=== PATIENT | male | born 1965 | race Hispanic/Latino ===

== ENCOUNTER 2021-06-22 20:06 | Observation (INO) | payer OTHER ==
[~2021-06-22] VITALS: Ht 177.8 cm; Wt 132.4 kg
[2021-06-22] MEDS ORDERED: ONDANSETRON HCL INJ 2MG/ML 2ML 2 MG/ML VIAL IV PRN (20:30)
[2021-06-22] MEDS ORDERED: Morphine 4mg Syringe 4 MG/ML INJ IV PRN (20:45)
[2021-06-22 21:17] LABS: BASOPHILS # (AUTO) 0.1 (0.0-0.1); BASOPHILS % 0.7 % (0.0-1.0); EOSINOPHILS # (AUTO) 0.2 (0.0-0.4); EOSINOPHILS % 2.7 % (0.0-6.0); HEMATOCRIT 32.6 % (38.2-49.6); HEMOGLOBIN 9.7 g/dL (14.0-18.0); LYMPHOCYTES # (AUTO) 1.5 (1.0-3.2); LYMPHOCYTES % 20.2 % (18.0-39.1); MEAN CORPUSCULAR HEMOGLOBIN 26.3 pg (28-32); MEAN CORPUSCULAR HGB CONC 29.8 g/dL (31-35); MEAN CORPUSCULAR VOLUME 88.3 fL (81-99); MONOCYTES # (AUTO) 0.6 (0.2-0.8); NEUTROPHILS # (AUTO) 5.1 (2.1-6.9); PLATELET COUNT 376 x10e3/uL (140-360); RED BLOOD COUNT 3.69 x10e6/uL (4.3-5.7); RED CELL DISTRIBUTION WIDTH 13.3 % (11.7-14.4)
[2021-06-22 21:31] LABS: ALBUMIN/GLOBULIN RATIO 0.9 (0.8-2.0); ANION GAP 16.3 mmol/L (8-16); CALCIUM 8.8 mg/dL (8.4-10.2); CREATININE, SERUM 1.02 mg/dL (0.72-1.25); POTASSIUM 4.3 mmol/L (3.5-5.1)
[2021-06-22 21:36] LABS: CREATINE KINASE MB 3.9 ng/mL (0-5.0)
[2021-06-23] VITALS (9 sets, daily range): BP systolic 144–185; BP diastolic 80–96
[2021-06-23] MEDS ORDERED: FAMOTIDINE20 MG PO (00:58)
[2021-06-23] MEDS ORDERED: LASIX80 MG PO (00:58)
[2021-06-23] MEDS ORDERED: LISINOPRIL10 MG PO (00:58)
[2021-06-23] MEDS ORDERED: LANTUS 3ML100 UNITS/ SQ (00:58)
[2021-06-23] MEDS ORDERED: AUGMENTIN 875-1 EACH PO (00:58)
[2021-06-23] MEDS ORDERED: INPEN (FOR HUM1 EACH SQ (00:58)
[2021-06-23] MEDS ORDERED: CARVEDILOL12.5 MG PO (00:58)
[2021-06-23] MEDS ORDERED: HUMALOG100 UNIT/3 SQ (01:04)
[2021-06-23 07:20] LABS: BASOPHILS # (AUTO) 0.1 (0.0-0.1); BASOPHILS % 0.8 % (0.0-1.0); EOSINOPHILS # (AUTO) 0.2 (0.0-0.4); EOSINOPHILS % 3.6 % (0.0-6.0); HEMATOCRIT 30.9 % (38.2-49.6); HEMOGLOBIN 9.2 g/dL (14.0-18.0); LYMPHOCYTES # (AUTO) 1.6 (1.0-3.2); LYMPHOCYTES % 24.5 % (18.0-39.1); MEAN CORPUSCULAR HEMOGLOBIN 26.1 pg (28-32); MEAN CORPUSCULAR HGB CONC 29.8 g/dL (31-35); MEAN CORPUSCULAR VOLUME 87.8 fL (81-99); MONOCYTES # (AUTO) 0.7 (0.2-0.8); MONOCYTES % 9.8 % (4.4-11.3); NEUTROPHILS # (AUTO) 4.1 (2.1-6.9); NEUTROPHILS % 60.8 % (38.7-80.0); PLATELET COUNT 344 x10e3/uL (140-360); RED BLOOD COUNT 3.52 x10e6/uL (4.3-5.7); RED CELL DISTRIBUTION WIDTH 13.3 % (11.7-14.4)
[2021-06-23 07:42] LABS: ALBUMIN 2.7 g/dL (3.5-5.0); ALBUMIN/GLOBULIN RATIO 0.8 (0.8-2.0); ANION GAP 14.2 mmol/L (8-16); CALCIUM 8.6 mg/dL (8.4-10.2); CREATININE, SERUM 0.86 mg/dL (0.72-1.25); POTASSIUM 4.2 mmol/L (3.5-5.1)
[2021-06-23 07:49] LABS: CREATINE KINASE MB 3.2 ng/mL (0-5.0)
[2021-06-23] MEDS ORDERED: ONDANSETRON HCL 4 MG ORAL DISINTEGRATING TAB PO PRN (10:30)
[2021-06-23] MEDS ORDERED: DEXTROSE 50% SYRINGE 50 ML IV PRN (12:45)
[2021-06-23] MEDS: LISINOPRIL 10 MG TAB PO SCH (15:58)
[2021-06-23] MEDS: FUROSEMIDE 40 MG TAB PO SCH (15:58)
[2021-06-23] MEDS: INSULIN LISPRO 100 UNIT/1 ML 3ML VIAL SQ SCH ×3 (16:30→21:00)
[2021-06-23] MEDS ORDERED: CARVEDILOL 12.5 MG TAB PO SCH (17:00)
[2021-06-23] MEDS ORDERED: GENTAMICIN SULFATE 40 MG/ML 2 ML VIAL ONE (17:07)
[2021-06-23] MEDS ORDERED: LIDOCAINE HCL 2% LOCAL 20 ML VIAL ONE (17:07)
[2021-06-23] MEDS ORDERED: FENTANYL CITRATE/PF 100MCG/2 ML INJ ONE (17:07)
[2021-06-23] MEDS ORDERED: MIDAZOLAM HCL 2 MG/2 ML VIAL ONE (17:07)
[2021-06-23] MEDS ORDERED: Vancomycin IV 1 GM VIAL ONE (17:08)
[2021-06-23] MEDS ORDERED: IOPAMIDOL 300MG/ML 50ML INFUS..BTL IV ONE (17:08)
[2021-06-23] MEDS ORDERED: SODIUM CHLORIDE 0.9% 500ML 500 ML ONE (17:08)
[2021-06-23] MEDS ORDERED: SODIUM CHLORIDE 0.9% 1000ML 2,000 ML ONE (17:09)
[2021-06-23] MEDS ORDERED: SODIUM CHLORIDE 0.9% 250ML 250 ML ONE (17:09)
[2021-06-23] MEDS ORDERED: INSULIN GLARGINE 100 UNITS/ML VIAL SQ SCH (21:00)
[2021-06-23] MEDS ORDERED: FAMOTIDINE 20 MG TAB PO SCH (21:00)
[2021-06-23] MEDS ORDERED: ATORVASTATIN 20 MG TAB PO SCH (21:00)
[2021-06-23] MEDS ORDERED: EZETIMIBE 10 MG TAB PO SCH (21:00)
[2021-06-24] VITALS: BP 172/89
[2021-06-24 04:00] VITALS: BP 157/84
[2021-06-24 04:55] LABS: BASOPHILS % 0.5 % (0.0-1.0); EOSINOPHILS # (AUTO) 0.2 (0.0-0.4); EOSINOPHILS % 3.2 % (0.0-6.0); HEMOGLOBIN 9.9 g/dL (14.0-18.0); LYMPHOCYTES # (AUTO) 1.7 (1.0-3.2); MEAN CORPUSCULAR HEMOGLOBIN 26.4 pg (28-32); MONOCYTES # (AUTO) 0.6 (0.2-0.8); MONOCYTES % 7.7 % (4.4-11.3); NEUTROPHILS # (AUTO) 4.9 (2.1-6.9); NEUTROPHILS % 65.3 % (38.7-80.0); PLATELET COUNT 377 x10e3/uL (140-360); RED BLOOD COUNT 3.75 x10e6/uL (4.3-5.7); RED CELL DISTRIBUTION WIDTH 13.2 % (11.7-14.4)
[2021-06-24 05:13] LABS: ALBUMIN 2.8 g/dL (3.5-5.0); ALBUMIN/GLOBULIN RATIO 0.8 (0.8-2.0); ANION GAP 16.5 mmol/L (8-16); CALCIUM 8.9 mg/dL (8.4-10.2); CHOL/HDL RATIO 4.6 (3.9-4.7); CREATININE, SERUM 0.85 mg/dL (0.72-1.25); MAGNESIUM 1.8 MG/DL (1.3-2.1); PHOSPHORUS 4.4 MG/DL (2.3-4.7); POTASSIUM 3.5 mmol/L (3.5-5.1)
[2021-06-24] MEDS ORDERED: FENTANYL CITRATE/PF 100MCG/2 ML INJ ONE ×2 (06:48→07:14)
[2021-06-24] MEDS ORDERED: MIDAZOLAM HCL 2 MG/2 ML VIAL ONE ×2 (06:48→07:14)
[2021-06-24] MEDS ORDERED: SODIUM CHLORIDE 0.9% 1000ML 1,000 ML ONE (06:49)
[2021-06-24] MEDS ORDERED: SODIUM CHLORIDE 0.9% 500ML 500 ML ONE (06:49)
[2021-06-24] MEDS ORDERED: Morphine 2mg Syringe 2 MG/ML SYR IV PRN (07:45)
[2021-06-24 08:15] VITALS: BP 166/91
[2021-06-24] MEDS ORDERED: METOLAZONE 5 MG TAB PO SCH (09:00)
[2021-06-24] MEDS ORDERED: ASPIRIN 81 MG CHEW TAB PO SCH (09:00)
[2021-06-24] MEDS ORDERED: MAGNESIUM SULFATE 2GM/50ML 50 ML IV ONE (09:45)
[2021-06-24] MEDS ORDERED: POTASSIUM CHLORIDE 20 MEQ TAB CR PO ONE (10:10)
[2021-06-24] MEDS: FUROSEMIDE 40 MG TAB PO SCH (10:13)
[2021-06-24] MEDS: INSULIN LISPRO 100 UNIT/1 ML 3ML VIAL SQ SCH ×4 (11:09→15:12)
[2021-06-24] MEDS: LISINOPRIL 10 MG TAB PO SCH (11:15)
[2021-06-24 11:27] VITALS: BP 152/78
[2021-06-24] MEDS ORDERED: ZETIA10 MG PO (15:01)
[2021-06-24] MEDS ORDERED: METOLAZONE5 MG PO (15:01)
[2021-06-24] MEDS ORDERED: ASPIRIN CHEW81 MG PO (15:01)
[2021-06-24] MEDS ORDERED: LIPITOR20 MG PO (15:01)
[2021-06-24] MEDS ORDERED: PLAVIX75 MG PO (15:01)
[2021-06-24] MEDS ORDERED: FEOSOL325 MG PO (15:04)
[2021-06-24 16:00] VITALS: BP 127/69
[2021-06-25] MEDS ORDERED: CLOPIDOGREL BISULFATE 75 MG TAB PO SCH (09:00)
== END 2021-06-24 16:10 | disposition home or self-care (01) ==
LOC: ER 20:10 → ERHOLD 20:42 → MED/SURG2 06-23 00:59
PROVIDERS: ADMIT Internal Medicine; ATTEND Internal Medicine
DX: I44.2 Atrioventricular block, complete (principal); I11.0 Hypertensive heart disease with heart failure; I25.10 Atherosclerotic heart disease of native coronary artery without angina pectoris; G45.9 Transient cerebral ischemic attack, unspecified; D50.9 Iron deficiency anemia, unspecified; I25.2 Old myocardial infarction; E11.65 Type 2 diabetes mellitus with hyperglycemia; G51.0 Bell's palsy; Z89.421 Acquired absence of other right toe(s); Z87.891 Personal history of nicotine dependence; Z20.822 Contact with and (suspected) exposure to COVID-19; Z95.1 Presence of aortocoronary bypass graft; I50.42 Chronic combined systolic (congestive) and diastolic (congestive) heart failure; E78.5 Hyperlipidemia, unspecified
CPT/HCPCS: 33208; 33286; 36415 ×3; 71045 ×2; 80053 ×3; 80061; 82550 ×2; 82553 ×2; 82948 ×2; 83036; 83605; 83735; 84100; 84484 ×2; 85025 ×3; 87040; 93005; 93306; 94799 ×2; 97116; 97161; 97530; 99251; 99284; C1785; C1898 ×2; G0378 ×3; J0690; J1580; J2001; J2250 ×2; J2270; J3010 ×2; J3370; J3475; J7030 ×2; J7040 ×2; J7050 ×2; Q9967; U0002; 99152; 99153